=== PATIENT | male | born 1960 | race Caucasian/White ===

== ENCOUNTER 2024-02-06 15:09 | Inpatient (IN) | payer MEDICARE ==
[2024-02-06] MEDS ORDERED: Ipratropium/Albuterol 3 ML NEB NEB PRN (15:53)
[2024-02-06 16:11] VITALS: BMI 27.9
[2024-02-06] MEDS ORDERED: IBUPROFEN PO PRN (18:39)
[2024-02-06] MEDS ORDERED: [UNRECOGNIZED DRUG - OTHER] PO PRN (18:39)
[2024-02-06] MEDS ORDERED: ACETAMINOPHEN PO PRN (18:39)
[2024-02-06] MEDS ORDERED: Ipratropium/Albuterol 3 ML NEB NEB SCH (19:00)
[2024-02-06] MEDS: Ipratropium/Albuterol 3 ML NEB NEB SCH (19:40)
[2024-02-06] MEDS: Carvedilol 12.5 MG TAB PO SCH (20:01)
[2024-02-06] MEDS: Cyclobenzaprine 10 MG TAB PO SCH (20:02)
[2024-02-06] MEDS: busPIRone HCl 5 MG TAB PO SCH (20:02)
[2024-02-06] MEDS: Atorvastatin Calcium 20 MG TAB PO SCH (20:02)
[2024-02-06] MEDS: Pregabalin 75 MG CAP PO SCH (20:02)
[2024-02-06] MEDS: Tamsulosin HCl 0.4 MG CAP PO SCH (20:02)
[2024-02-06] MEDS: methylPREDNISolone Sod Succ 40 MG VIAL IVP SCH (20:05)
[2024-02-06] MEDS: OLANZapine 5 MG TAB PO SCH (20:12)
[2024-02-07] MEDS: Azithromycin 500 MG in Sodium Chloride 0.9% 250 ML 250 ML IVPB SCH (05:19)
[2024-02-07 05:46] LABS: Anion Gap 14 mmol/L (10-20); BUN (Urea Nitrogen) 17 mg/dL (8.4-25.7); Calc. Creatinine Clearance 79 mL/min (70-130); Calcium 8.8 mg/dL (7.8-10.44); Carbon Dioxide 23 mmol/L (23-31); Chloride 105 mmol/L (98-107); Estimated GFR 82; Glucose 162 mg/dL (80-115); Potassium 3.8 mmol/L (3.5-5.1); Sodium 138 mmol/L (136-145)
[2024-02-07 06:07] LABS: Band 9 % (5-11); Lymphocytes 6 % (21-51); Monocytes 4 % (0-10); Neutrophil 81 % (42-75); RBC Morph Comment Within Normal Limits
[2024-02-07 06:08] LABS: Hematocrit 38.5 % (38.8-50.0); Mean Corpuscular HGB CONC 33.8 g/dL (32.0-36.0); Mean Corpuscular Hemoglobin 28.8 pg (27.0-33.0); Mean Corpuscular Volume 85.2 fl (81.2-95.1); Mean Platelet Volume 11.9 fl (7.4-10.4); Platelet Adequacy Comment Appears Adequate; Platelet Count 215 10x3/uL (150-450); RBC Distribution Width 14.7 % (11.5-14.5); Red Blood Cell (RBC) Count 4.52 10x6/uL (4.32-5.72); White Blood Cell (WBC) Count 14.2 10x3/uL (3.5-10.5)
[2024-02-07] MEDS: cefTRIAXone\\ROCEPHIN 1 GM in Sodium Chloride 0.9% 100 ML IVPB SCH (06:35)
[2024-02-07] MEDS: Mometasone 100 MCG/PUFF (1 INHALER) INH SCH (07:20)
[2024-02-07] MEDS ORDERED: LAMOTRIGINE 100 MG PO SCH (09:00)
[2024-02-07] MEDS: Enoxaparin 40 MG (0.4 mL) SYRINGE SC SCH (10:11)
[2024-02-07 11:53] LABS: Bilirubin Neg (Negative); Blood, Urine Negative (Negative); Clarity Clear (Clear); Glucose, Urine (Dipstick) Normal (Negative); Ketone, Urine Negative (Negative); Leukocyte Negative (Negative); Nitrite Negative (Negative); Protein, Urine (Dipstick) 15 mg/dl (Neg-Trace); Urobilinogen Normal mg/dL (Less than 2)
[2024-02-07 12:03] LABS: Amphetamine Not Detected (NotDetected); Barbiturates Screen Not Detected (NotDetected); Benzodiazepine Screen Not Detected (NotDetected); Cocaine Metabolite Screen Not Detected (NotDetected); Methadone Not Detected (NotDetected); Methamphetamine Not Detected (NotDetected); Opiate Screen Not Detected (NotDetected); Oxycodone Screen Not Detected (NotDetected); Phencyclidine (PCP) Not Detected (NotDetected); THC/Cannabinoid Screen Detected (NotDetected); Tricyclic Screen Detected (NotDetected)
[2024-02-07 12:19] LABS: Bacteria/HPF None Seen HPF (None Seen); CAUTI Indications for Culture Alt mental st,lethar; RBC/HPF 0-3 HPF (0-3); Squamous Epithelial None Seen HPF (0-3); Urine Culture Reflex No No; WBC/HPF None Seen HPF (0-3)
[2024-02-07] MEDS: Cyclobenzaprine 10 MG TAB PO SCH (20:38)
[2024-02-07] MEDS: lamoTRIgine 100 MG TAB PO SCH (20:39)
[2024-02-07] MEDS: busPIRone HCl 5 MG TAB PO SCH (20:39)
[2024-02-07] MEDS: Nortriptyline HCl 25 MG CAP PO SCH (20:52)
[2024-02-08 04:51] VITALS: TEMP 98.5
[2024-02-08] MEDS: LevoFLOXacin 750 MG TAB PO SCH (05:43)
[2024-02-08 08:18] VITALS: BP 130/75
[2024-02-08] MEDS: predniSONE 20 MG TAB PO SCH (08:20)
[2024-02-08] MEDS: DULoxetine 30 MG CAP PO SCH (08:20)
[2024-02-08] MEDS ORDERED: Non-Formulary Medication 1 EACH (Iron [Iron] 18 MG Tablet) PO SCH (09:00)
== END 2024-02-08 12:39 | disposition home or self-care (01) | DRG 189 ==
LOC: CSHTELE 15:09
PROVIDERS: ADMIT Internal Medicine; ATTEND Emergency Medicine
DX: J96.01 Acute respiratory failure with hypoxia (principal); G93.41 Metabolic encephalopathy; J44.1 Chronic obstructive pulmonary disease with (acute) exacerbation; J96.02 Acute respiratory failure with hypercapnia; K21.9 Gastro-esophageal reflux disease without esophagitis; E78.5 Hyperlipidemia, unspecified; I10 Essential (primary) hypertension; N50.819 Testicular pain, unspecified; G89.29 Other chronic pain; R07.89 Other chest pain; G62.9 Polyneuropathy, unspecified; R40.0 Somnolence; Z79.899 Other long term (current) drug therapy; F17.210 Nicotine dependence, cigarettes, uncomplicated; F12.90 Cannabis use, unspecified, uncomplicated; M81.0 Age-related osteoporosis without current pathological fracture; Z92.3 Personal history of irradiation; Z92.21 Personal history of antineoplastic chemotherapy; Z98.890 Other specified postprocedural states
CPT/HCPCS: 36415; 70450; 71045; 80048; 80053; 80306; 81001; 82805; 83880; 84484; 85025; 93005; 94640; 94644; 94660; 94664; 94760; 96360; J0456; J0696; J1650; J2920; J3490; J7050; J7512; J7611; J7620